=== PATIENT | male | born 1975 | race Caucasian/White ===

== ENCOUNTER 2022-03-06 22:31 | Emergency (ER) | payer MEDICARE, OTHER ==
[~2022-03-06] VITALS: Ht 180.3 cm; Wt 143.8 kg
[2022-03-06] MEDS ORDERED: methylPREDNISolone 80 MG/ML (DEPO MEDROL) VIAL IM STA (22:46)
[2022-03-06] MEDS ORDERED: ACETAMINOPHEN 500 MG TAB (TYLENOL) PO STA (22:46)
--- NOTE | 2022-03-06 22:50 | ED General ---
General Chief Complaint: Cough/Cold/Flu Symptoms Stated Complaint: FEVER,CONGESTION Source of Information: Patient History of Present Illness Date Seen by Provider: Mar 06, 2022 Time Seen by Provider: 22:39 Initial Comments 46-year-old male presenting with complaints of fever, cough, congestion since Monday night March 04. Denies any known ill contacts. He has had trouble keeping his fever down. He has only been taking ibuprofen 400 mg every 4-6 hours. He was not bringing anything up when he coughs. He had a sore throat and headache as well. Timing/Duration: 1-2 Days Severity: Severe Associated Systoms: Cough; No Diaphoresis; Fever/Chills, Headaches; No Loss of Appetite; Malaise; No Nausea/Vomiting, No Rash, No Seizure; Shortness of Air; No Syncope, No Weakness Allergies and Home Medications Allergies Coded Allergies: Penicillins (Verified Allergy, Unknown, 03/06/22) clarithromycin (Verified Allergy, Unknown, 03/06/22) Patient Home Medication List Home Medication List Reviewed: Yes Oseltamivir Phosphate (Oseltamivir Phosphate) 75 Mg Capsule, 75 MG PO BID Prescribed by: DELROY YE on 03/06/22 4478 Review of Systems Review of Systems Constitutional: chills, fever EENTM: nose congestion, throat pain Respiratory: cough, dyspnea on exertion, short of breath, wheezing Cardiovascular: chest pain (Chest wall pain from coughing) Gastrointestinal: No nausea, No vomiting Genitourinary: No dysuria Musculoskeletal: see HPI (Generalized body aches with fever) Skin: No rash Psychiatric/Neurological: Headache Hematologic/Lymphatic: Denies Blood Clots Past Cqpxqsk-Mhecyt-Vhshzm Hx Patient Social History Tobacco Use?: No Use of E-Cig and/or Vaping dev: No Substance use?: No Alcohol Use?: No Physical Exam Vital Signs Vital Signs - First Documented Capillary Refill : Height, Weight, BMI Height: '" Weight: lbs. oz. kg; BMI Method: General Appearance: No Apparent Distress, Obese HEENT: PERRL/EOMI, Moist Mucous Membranes, Pharyngeal Erythema; No Photophobia, No Tonsillar Exudate, No Tonsillar Enlargement Neck: Full Range of Motion, Normal Inspection, Non Tender, Supple Respiratory: No Chest Non Tender (Tender to palpation over chest wall); Lungs C lear, Normal Breath Sounds, No Accessory Muscle Use, No Respiratory Distress Cardiovascular: Normal Peripheral Pulses, Tachycardia Extremity: Normal Capillary Refill, Normal Inspection, No Pedal Edema Neurologic/Psychiatric: Alert, Oriented x3, wiping rag washer II-XII Norm as Tested Skin: Normal Color, Warm/Dry Progress/Results/Core Measures Suspected Sepsis SIRS Temperature: Pulse: Respiratory Rate: Blood Pressure / Mean: Results/Orders Lab Results Laboratory Tests Test 03/06/22 22:50 Range/Units Influenza Type A (RT-PCR) Detected H Not Detecte Influenza Type B (RT-PCR) Not Detected Not Detecte SARS-CoV-2 RNA (RT-PCR) Not Detected Not Detecte My Orders Orders - DELROY YE MD Chest Pa/Lat (2 View) (03/06/22 22:44) Covid 19 Inhouse Test (03/06/22 22:44) Influenza A And B By Pcr (03/06/22 22:44) Isolation Central Supply Req (03/06/22 22:44) Dexamethasone Injection (Decadron Inje (03/06/22 22:46) Methylprednisolone Acetate Inj (Depo-Med (03/06/22 22:46) Acetaminophen Tablet (Tylenol Tablet) (03/06/22 22:46) Oseltamivir 75 Mg Capsule (Tamiflu 75 (03/06/22 23:33) Vital Signs/I&O 03/06/22 03/06/22 03/06/22 22:37 22:37 23:40 Temp 38.2 36.7 Pulse 98 98 Resp 16 16 B/P (MAP) 140/89 (106) 140/89 Pulse Ox 96 96 O2 Delivery Room Air Room Air Room Air Capillary Refill : Progress Note #1: Progress Note Swab to check for influenza and COVID. Chest x-ray to look for pneumonia. Decadron and Depo-Medrol for helping to loosen up his cough and congestion. Acetaminophen to help with his fever Progress Note #2: Progress Note Influenza A is positive. Other tests were negative. No acute infiltrate or effusion on my review and personal interpretation of his two-view chest x-ray. Counseled on influenza a and treatment with Tamiflu. Encourage fluids and hydration. Counseled on fever control. Diagnostic Imaging Diagonstic Imaging: Xray Plain Films/CT/US/NM/MRI: chest Comments On my review and personal interpretation of the two-view chest x-ray patient has no acute infiltrate or effusion. Reviewed: Reviewed by Me Departure Impression Primary Impression: Influenza A Additional Impression: Acute viral syndrome Disposition: 01 HOME, SELF-CARE Condition: Stable Departure-Patient Inst. Decision time for Depature: 23:19 Referrals: [facility] Patient Instructions: Flu, Adult ED, Viral Syndrome (DC), Fever, Adult (DC) Add. Discharge Instructions: Take the Tamiflu to help shorten the course of the Influenza infection. Wear a mask and quarantine around others while you have fever. Alternate Acetaminophen 650 mg every 4 hours with Ibuprofen 600 mg (3 over the counter 200 mg pills) every 6 hours to help with fever and body aches. Drink more water and fluids to stay better hydrated. You could take Mucinex to help loosen cough and congestion but need to drink extra water to make it work effectively. All discharge instructions reviewed with patient and/or family. Voiced u nderstanding. Scripts Oseltamivir Phosphate (Oseltamivir Phosphate) 75 Mg Capsule 75 MG PO BID for Influenza A for 5 Days, #10 CAP 0 Refills Prov: DELROY YE MD 03/06/22 Work/School Note: Work Release Form Date Seen in the Emergency Department: Mar 06, 2022 Return to Work: Mar 09, 2022 Restrictions: Return-No Fever (24hrs) DELROY YE MD Mar 06, 2022 22:50
[2022-03-06] MEDS ORDERED: OSEL75CA15 PO (23:22)
[2022-03-06] MEDS ORDERED: OSELTAMIVIR 75 MG (TAMIFLU) CAPSULE PO STA (23:33)
[2022-03-06 23:40] VITALS: BP 140/89
--- NOTE | 2022-03-07 08:11 | Diagnostic Imaging Report ---
EXAMINATION: CHEST (PA AND LATERAL) CLINICAL INDICATION: 46-year-old male, cough and fever. Shortness of breath. COMPARISON: None. FINDINGS: Heart size and mediastinal contours are unremarkable. There is no identified pneumothorax. There is no pleural effusion. There is no identified focal airspace consolidation. IMPRESSION: 1. No identified acute cardiopulmonary abnormality. Dictated by: Dictated on workstation # [id number]
== END 2022-03-06 23:41 | disposition home or self-care (01) ==
LOC: ER FS 22:34
DX: J10.1 Influenza due to other identified influenza virus with other respiratory manifestations (principal); B34.9 Viral infection, unspecified; E66.9 Obesity, unspecified; Z68.41 Body mass index [BMI] 40.0-44.9, adult; Z20.822 Contact with and (suspected) exposure to COVID-19; Z28.310 Unvaccinated for COVID-19
CPT/HCPCS: 71046; 87636

== ENCOUNTER 2022-08-01 09:22 | Emergency (ER) | payer MEDICARE ==
[~2022-08-01] VITALS: Ht 182 cm; Wt 145.0 kg
[~2022-08-01 09:22] MED LIST: OSEL75CA15 PO
[2022-08-01] MEDS ORDERED: NS IV 1000 ML 1,000 ML IV STA (09:37)
[2022-08-01] MEDS ORDERED: PANTOPRAZOLE 40 MG (PROTONIX) VIAL IV STA (09:37)
--- NOTE | 2022-08-01 09:44 | ED GI ---
General Chief Complaint: Abdominal/GI Problems Stated Complaint: ABD PAIN; BLOODY STOOL Source of Information: Patient, RN/MD (MARY Langford from [facility] called at 0917 to advise the patient was coming from seeing her. Had hemoglobin 14.5, Hemorrhoids on rectal exam and diffuse abdominal pain.) History of Present Illness Date Seen by Provider: Aug 01, 2022 Time Seen by Provider: 09:25 Initial Comments 46-year-old male presenting with complaints of 4 days of diffuse abdominal cramping pain with recurrent watery diarrhea and bloody stools. He has had some increased belching and states that it smells like rotten eggs. He has increased cramping pain and diarrhea with trying to eat or drink anything. He has some mild nausea but no vomiting. He has been taking Imodium [id number]-[id number] but it was not slowing down his diarrhea. He denies any new foods or recent travel or antibiotics. He also denies any ill contacts. He denies having symptoms like this previously. He has not had any endoscopy done to look at his colon or gut in the past. He does not know of any history for family of Crohn's or Ulcerative colitis. He denies any surgery on his abdomen previously. He reports a history of borderline Diabetes but was never put on any medicines. He has not established with a pcp here in [place] since moving here around 2021. He describes watery diarrhea with blood and states it happens about every hour. He last ate last night and he drank a bottle of water this am around 720 am. Whenever he eats or drinks anything his symptoms are worse. Timing/Duration: 3-4 Days Severity/Quality: Mild (4 out of 10), Cramping Location: Generalized Abdomen Activities at Onset: None Modifying Factors: Worsens With Defecating Associated Symptoms: No Back Pain, No Chest Pain, No Diaphoresis, No Fever/Chills; Fatigue; No Headache; Heartburn; No Rash, No Shortness of Air, No Swelling/Mass in Abdomen, No Syncope, No Weakness Allergies and Home Medications Allergies Coded Allergies: Levofloxacin (Verified Allergy, Severe, Hives, 08/01/22) Penicillins (Verified Allergy, Severe, Hives, 08/01/22) clarithromycin (Verified Allergy, Severe, Hives, 08/01/22) Patient Home Medication List Home Medication List Reviewed: Yes Dicyclomine HCl (Dicyclomine HCl) 10 Mg Capsule, 10 MG PO Q6H PRN for abdominal cramping Prescribed by: DELROY YE on 08/01/22 1118 Oseltamivir Phosphate (Oseltamivir Phosphate) 75 Mg Capsule, 75 MG PO BID Prescribed by: DELROY YE on 03/06/22 2322 Sulfamethoxazole/Trimethoprim (Bactrim Ds Tablet) 1 Each Tablet, 1 EACH PO BID Prescribed by: DELROY YE on 08/01/22 1118 Review of Systems Review of Systems Constitutional: No chills, No dizziness, No fever EENTM: No Symptoms Reported Respiratory: No Symptoms Reported Cardiovascular: No Symptoms Reported Gastrointestinal: See HPI Genitourinary: No Symptoms Reported Musculoskeletal: no symptoms reported Skin: no symptoms reported Psychiatric/Neurological: No Symptoms Reported Past Njpxncz-Zroqpw-Dgpewh Hx Patient Social History Tobacco Use?: No Use of E-Cig and/or Vaping dev: No Substance use?: No Immunizations Up To Date First/Initial COVID19 Vaccinat: n.a Second COVID19 Vaccination Pito: n.a Third COVID19 Vaccination Date: n.a Past Medical History Surgery/Hospitalization HX: Borderline Diabetes Surgeries: No Physical Exam Vital Signs Vital Signs - First Documented 08/01/22 09:26 Temp 36.9 Pulse 102 Resp 16 B/P (MAP) 137/78 (97) Pulse Ox 97 O2 Delivery Room Air Capillary Refill : Height/Weight/BMI Height: '" Weight: lbs. oz. kg; 44.00 BMI Method: General Appearance: WD/WN, no apparent distress, obese HEENT: PERRL/EOMI, pharynx normal Neck: non-tender, full range of motion, supple, normal inspection Respiratory: chest non-tender, lungs clear, normal breath sounds, no respiratory distress, no accessory muscle use Cardiovascular: normal peripheral pulses, regular rate, rhythm Gastrointestinal: normal bowel sounds, soft, no pulsatile mass; No distended, No guarding, No rebound; tenderness (diffuse tenderness to palpation but feels it is worse with palpation of upper abdomen) Rectal: deferred (He had JULIO with [facility] at Urgent care so did not repeat the rectal. She had reported he has hemorrhoids but no active bleeding on exam.) Extremities: normal range of motion, non-tender, normal capillary refill Neurologic/Psychiatric: dish carrier II-XII nml as tested, alert, oriented x 3 Skin: normal color, warm/dry Images 1 - diffuse abdominal cramping pain worse with palpation. Seems like upper abdomen worse than lower abdomen with palpation. Progress/Results/Core Measures Results/Orders Lab Results Laboratory Tests Test 08/01/22 09:35 08/01/22 09:37 Range/Units White Blood Count 8.8 4.3-11.0 10^3/uL Red Blood Count 4.79 4.30-5.52 10^6/uL Hemoglobin 14.8 13.3-17.7 g/dL Hematocrit 43 40-54 % Mean Corpuscular Volume 89 80-99 fL Mean Corpuscular Hemoglobin 31 25-34 pg Mean Corpuscular Hemoglobin Concent 35 32-36 g/dL Red Cell Distribution Width 12.9 10.0-14.5 % Platelet Count 178 130-400 10^3/uL Mean Platelet Volume 10.4 9.0-12.2 fL Immature Granulocyte % (Auto) 1 % Neutrophils (%) (Auto) 58 42-75 % Lymphocytes (%) (Auto) 32 12-44 % Monocytes (%) (Auto) 7 0-12 % Eosinophils (%) (Auto) 2 0-10 % Basophils (%) (Auto) 1 0-10 % Neutrophils # (Auto) 5.1 1.8-7.8 10^3/uL Lymphocytes # (Auto) 2.8 1.0-4.0 10^3/uL Monocytes # (Auto) 0.7 0.0-1.0 10^3/uL Eosinophils # (Auto) 0.2 0.0-0.3 10^3/uL Basophils # (Auto) 0.1 0.0-0.1 10^3/uL Immature Granulocyte # (Auto) 0.0 0.0-0.1 10^3/uL Sodium Level 136 135-145 MMOL/L Potassium Level 4.2 3.6-5.0 MMOL/L Chloride Level 101 98-107 MMOL/L Carbon Dioxide Level 23 21-32 MMOL/L Anion Gap 12 5-14 MMOL/L Blood Urea Nitrogen 13 7-18 MG/DL Creatinine 0.86 0.60-1.30 MG/DL Estimat Glomerular Filtration Rate 107 BUN/Creatinine Ratio 15 Glucose Level 122 H 70-105 MG/DL Calcium Level 9.3 8.5-10.1 MG/DL Corrected Calcium 9.1 8.5-10.1 MG/DL Total Bilirubin 0.3 0.1-1.0 MG/DL Aspartate Amino Transf (AST/SGOT) 39 H 5-34 U/L Alanine Aminotransferase (ALT/SGPT) 61 H 0-55 U/L Alkaline Phosphatase 72 40-136 U/L Total Protein 7.1 6.4-8.2 GM/DL Albumin 4.2 3.2-4.5 GM/DL Lipase 32 8-78 U/L Urine Color YELLOW Urine Clarity CLEAR Urine pH 5.5 5-9 Urine Specific [place] 1.025 H 1.016-1.022 Urine Protein NEGATIVE NEGATIVE Urine Glucose (UA) NEGATIVE NEGATIVE Urine Ketones NEGATIVE NEGATIVE Urine Nitrite NEGATIVE NEGATIVE Urine Bilirubin NEGATIVE NEGATIVE Urine Urobilinogen 0.2 < = 1.0 MG/DL Urine Leukocyte Esterase NEGATIVE NEGATIVE Urine RBC (Auto) NEGATIVE NEGATIVE Urine RBC NONE /HPF Urine WBC NONE /HPF Urine Squamous Epithelial Cells 5-10 /HPF Urine Crystals NONE /LPF Urine Bacteria NEGATIVE /HPF Urine Casts NONE /LPF Urine Mucus SMALL H /LPF Urine Culture Indicated NO Micro Results Microbiology 08/01/22 C. difficile GDH Antigen & Toxins - Final, Complete My Orders Orders - DELROY YE MD Comprehensive Metabolic Panel (08/01/22 09:37) Lipase (08/01/22 09:37) Ua Culture If Indicated (08/01/22 09:37) Ed Iv/Invasive Line Start (08/01/22 09:37) Cbc With Automated Diff (08/01/22 09:37) Ct Abdomen/Pelvis W (08/01/22 09:37) Ns Iv 1000 Ml (Sodium Chloride 0.9%) (08/01/22 09:37) Pantoprazole Injection (Protonix Injecti (08/01/22 09:37) Stool Culture (08/01/22 09:37) Fecal Wbc (08/01/22 09:37) C Difficile Ag + Toxin A/B. (08/01/22 09:37) Iohexol Injection (Omnipaque 350 Mg/Ml 1 (08/01/22 10:30) Received Contrast (Hold Metformin- Contr (08/01/22 10:30) Ns (Ivpb) (Sodium Chloride 0.9% Ivpb Bag (08/01/22 10:30) Iohexol Injection (Omnipaque 350 Mg/Ml 1 (08/01/22 10:30) Received Contrast (Hold Metformin- Contr (08/01/22 10:30) Ns (Ivpb) (Sodium Chloride 0.9% Ivpb Bag (08/01/22 10:30) Medications Given in ED Current Medications Medications Dose Ordered Sig/Christine Route Start Time Stop Time Status Last Admin Dose Admin Iohexol 100 ml ONCE ONCE IV 08/01/22 10:30 08/01/22 10:31 DC 08/01/22 10:27 100 ML Sodium Chloride 100 ml ONCE ONCE IV 08/01/22 10:30 08/01/22 10:31 DC 08/01/22 10:27 100 ML Vital Signs/I&O 08/01/22 08/01/22 09:26 11:37 Temp 36.9 36.9 Pulse 102 84 Resp 16 16 B/P (MAP) 137/78 (97) 126/72 Pulse Ox 97 98 O2 Delivery Room Air Room Air Progress Progress Note #1: Progress Note Potential diagnosis of gastroenteritis, diverticulitis, colitis, cholecystitis, pyelonephritis, Crohn's, ulcerative colitis, food poisoning. Obtain peripheral IV access and send labs for complete blood count, comprehensive metabolic profile, lipase, urinalysis, stool studies. CT scan of the abdomen and pelvis with IV contrast to help evaluate for pathology in his abdomen and pelvis causing his symptoms. Administer normal saline 1 L IV fluid bolus for hydration, pantoprazole 40 mg IV for gastritis/GERD. Patient denies needing any medicine for nausea and denies needing anything for pain right now. We will have him trying to provide a stool specimen for culture and testing as well as a urinalysis for testing. Progress Note #2: Time: 10:47 Progress Note Complete blood count showed normal white blood cell count at 8.8, he was not anemic with a hemoglobin of 14.8. He had normal platelets at 178. His comprehensive metabolic profile showed no acute significant abnormality on his electrolytes. His glucose was up to 122. His lipase was normal at 32. His ALT and AST were slightly elevated to 39 and 61. I reviewed the radiologist report at 10:47 AM and it showed no acute significant abnormality. He had just provided a urine specimen and a stool specimen. The stool specimen was primarily blood and clots and only a small amount. Progress Note #3: Progress Note Urinalysis did not show signs of infection or dehydration. Stool studies pending at time of discharge. As patient reports an allergy to penicillins, clarithromycin, Levaquin, and states all 3 of the medicines cause hives rash and trouble breathing he would not be a candidate for azithromycin or fluoroquinolone to treat for the bloody stools in case there is a bacterial component. He reports that he is not allergic to sulfa drugs so we will try using Bactrim DS 1 p.o. twice daily for his bloody stools in case there is a bacterial component. Cultures pending as well as a C. difficile toxin. Counseled on follow-up and return precautions. Also given information about Dr. Mays the on-call general surgeon for follow-up for possible endoscopy. Diagnostic Imaging Diagonstic Imaging: CT Plain Films/CT/US/NM/MRI: abdomen, pelvis Comments NAME: [facility] REC#: [id number] PT STATUS: REG ER : 1975 PHYSICIAN: DELROY YE MD ADMIT DATE: 08/01/22/ER FS Draft Date of Exam:08/01/22 CT ABDOMEN/PELVIS W EXAMINATION: CT abdomen and pelvis with intravenous contrast. TECHNIQUE: Multiple contiguous axial images were obtained through the abdomen and pelvis after the uneventful administration of intravenous contrast. All CT scans use one or more of the following dose optimizing techniques: automated exposure control, MA and/or KvP adjustment based on patient size and exam type or iterative reconstruction. HISTORY: diffuse abd pain, bloody diarrhea x 4 days COMPARISON: None available. FINDINGS: Lung bases: The lung bases are clear. Solid organs: The liver is normal without focal lesion. The gallbladder is normal. There is no biliary ductal dilation. Pancreas is normal. Spleen is normal. Adrenal glands are normal. The kidneys are normal without hydronephrosis. Bowel: The stomach and small bowel are normal without obstruction. The colon is normal. There are no secondary signs of acute appendicitis. Peritoneum: There is no intraperitoneal free fluid or free air. No suspicious lymphadenopathy. Vasculature: Normal without aneurysm. Musculoskeletal: Degenerative changes of the spine without suspicious osseous lesion or compression fracture. Pelvis: The prostate gland is normal. The urinary bladder is normal. IMPRESSION: 1. No acute abnormality in the abdomen or pelvis. Dictated on workstation # [id number] Dict: 08/01/22 1035 Trans: 08/01/22 1038 [id number] Interpreted by: RIANNA SIMMONS DO Electronically signed by: Reviewed: Reviewed by Me Departure Impression Primary Impression: Bloody diarrhea Additional Impression: Abdominal cramping, generalized Disposition: 01 HOME, SELF-CARE Condition: Stable Departure-Patient Inst. Decision time for Depature: 11:16 Referrals: FELICIA MAYS,LOCAL PHYSICIAN (PCP) Primary Care Physician [facility] Patient Instructions: Bloody Stools, Adult ED, Abdominal Pain, Adult ED Add. Discharge Instructions: Stay well-hydrated and continue to drink plenty of fluids. Use the antibiotic and medicine for cramping to help with your bloody diarrhea. If the culture and studies of your stool come back showing that you need a different medicine or antibiotic you will get a call. If your symptoms persist or you are having more problems you could call Dr. Mays, general surgeon, in [place] about having a colonoscopy set up and further evaluation. Check with [facility] about establishing a primary care provider. All discharge instructions reviewed with patient and/or family. Voiced understanding. Scripts Dicyclomine HCl (Dicyclomine HCl) 10 Mg Capsule 10 MG PO Q6H PRN for abdominal cramping for 7 Days, #28 CAP 0 Refills Prov: DELROY YE MD 08/01/22 Sulfamethoxazole/Trimethoprim (Bactrim Ds Tablet) 1 Each Tablet 1 EACH PO BID for BLoody Diarrhea for 7 Days, #14 TAB 0 Refills Prov: DELROY YE MD 08/01/22 DELROY YE MD Aug 01, 2022 09:44
[2022-08-01 09:54] LABS: BASOPHILS # (AUTO) 0.1 10^3/uL (0.0-0.1); BASOPHILS % (AUTO) 1 % (0-10); EOSINOPHILS # (AUTO) 0.2 10^3/uL (0.0-0.3); EOSINOPHILS % (AUTO) 2 % (0-10); HEMATOCRIT 43 % (40-54); HEMOGLOBIN 14.8 g/dL (13.3-17.7); LYMPHOCYTES # (AUTO) 2.8 10^3/uL (1.0-4.0); LYMPHOCYTES % (AUTO) 32 % (12-44); MEAN CORPUSCULAR HEMOGLOBIN 31 pg (25-34); MEAN CORPUSCULAR HGB CONC 35 g/dL (32-36); MEAN CORPUSCULAR VOLUME 89 fL (80-99); MEAN PLATELET VOLUME 10.4 fL (9.0-12.2); MONOCYTES # (AUTO) 0.7 10^3/uL (0.0-1.0); MONOCYTES % (AUTO) 7 % (0-12); NEUTROPHILS # (AUTO) 5.1 10^3/uL (1.8-7.8); NEUTROPHILS % (AUTO) 58 % (42-75); PLATELET COUNT 178 10^3/uL (130-400); WHITE BLOOD COUNT 8.8 10^3/uL (4.3-11.0)
[2022-08-01 10:07] LABS: BILIRUBIN,TOTAL 0.3 MG/DL (0.1-1.0); CALCIUM 9.3 MG/DL (8.5-10.1); CREATININE SERUM 0.86 MG/DL (0.60-1.30); POTASSIUM 4.2 MMOL/L (3.6-5.0)
[2022-08-01 10:08] LABS: ALBUMIN 4.2 GM/DL (3.2-4.5); TOTAL PROTEIN 7.1 GM/DL (6.4-8.2)
[2022-08-01] MEDS ORDERED: HOLD METFORMIN - RECEIVED CONTRAST 20 ML VIAL IV SCH ×2 (10:30)
[2022-08-01] MEDS ORDERED: NS 100 ML (IVPB) BAG IV ONE ×2 (10:30)
[2022-08-01] MEDS ORDERED: IOHEXOL 350 MG/ML 100 ML (OMNIPAQUE 350) VIAL IV ONE ×2 (10:30)
--- NOTE | 2022-08-01 10:39 | Diagnostic Imaging Report ---
EXAMINATION: CT abdomen and pelvis with intravenous contrast. TECHNIQUE: Multiple contiguous axial images were obtained through the abdomen and pelvis after the uneventful administration of intravenous contrast. All CT scans use one or more of the following dose optimizing techniques: automated exposure control, MA and/or KvP adjustment based on patient size and exam type or iterative reconstruction. HISTORY: diffuse abd pain, bloody diarrhea x 4 days COMPARISON: None available. FINDINGS: Lung bases: The lung bases are clear. Solid organs: The liver is normal without focal lesion. The gallbladder is normal. There is no biliary ductal dilation. Pancreas is normal. Spleen is normal. Adrenal glands are normal. The kidneys are normal without hydronephrosis. Bowel: The stomach and small bowel are normal without obstruction. The colon is normal. There are no secondary signs of acute appendicitis. Peritoneum: There is no intraperitoneal free fluid or free air. No suspicious lymphadenopathy. Vasculature: Normal without aneurysm. Musculoskeletal: Degenerative changes of the spine without suspicious osseous lesion or compression fracture. Pelvis: The prostate gland is normal. The urinary bladder is normal. IMPRESSION: 1. No acute abnormality in the abdomen or pelvis. Dictated by: Dictated on workstation # [id number]
[2022-08-01 10:54] LABS: BILIRUBIN,URINE NEGATIVE (NEGATIVE); CLARITY,URINE CLEAR; COLOR,URINE YELLOW; GLUCOSE, URINE (UA) NEGATIVE (NEGATIVE); KETONES,URINE NEGATIVE (NEGATIVE); LEUKOCYTE ESTERASE ,URINE NEGATIVE (NEGATIVE); NITRITE,URINE NEGATIVE (NEGATIVE); PH,URINE 5.5 (5-9); PROTEIN,URINE NEGATIVE (NEGATIVE)
[2022-08-01 10:59] LABS: BACTERIA,URINE NEGATIVE /HPF
[2022-08-01] MEDS ORDERED: SULF1TAB38 PO (11:18)
[2022-08-01] MEDS ORDERED: DICY10CA12 PO (11:18)
[2022-08-01 11:37] VITALS: BP 126/72
== END 2022-08-01 11:38 | disposition home or self-care (01) ==
LOC: EDUNIT# 09:22 → ER FS 09:23
DX: K92.1 Melena (principal); K64.9 Unspecified hemorrhoids; R10.84 Generalized abdominal pain; E66.9 Obesity, unspecified; Z88.1 Allergy status to other antibiotic agents; Z68.41 Body mass index [BMI] 40.0-44.9, adult; Z28.310 Unvaccinated for COVID-19
CPT/HCPCS: 36415; 74177; 80053; 81000; 83690; 85025; 87015; 87045; 87046; 87324; 87449; 87899; Q9967

== ENCOUNTER 2022-09-07 05:52 | Outpatient (CLI) | payer MEDICARE ==
[~2022-09-07] VITALS: Ht 182.9 cm; Wt 144.7 kg
[~2022-09-07 05:52] MED LIST changes: +DICY10CA12 PO; +SULF1TAB38 PO
[2022-09-12] MEDS ORDERED: TADA5TAB13 PO (17:30)
[2022-09-12] MEDS ORDERED: FLUO40CA12 PO (17:30)
[2022-09-12] MEDS ORDERED: DIAZ5TAB49 PO (17:30)
== END 2022-09-12 17:39 | disposition home or self-care (01) ==
LOC: PREOP 05:52
PROVIDERS: ATTEND Surgery
DX: Z01.818 Encounter for other preprocedural examination (principal)

== ENCOUNTER 2022-09-19 07:33 | Day surgery (SDC) | payer MEDICARE ==
[~2022-09-19] VITALS: Ht 182.9 cm; Wt 144.7 kg
[~2022-09-19 07:33] MED LIST changes: +DIAZ5TAB49 PO; +FLUO40CA12 PO; +TADA5TAB13 PO
[2022-09-19] MEDS ORDERED: LACTATED RINGERS 1,000 ML IV STA (07:36)
[2022-09-19 07:50] VITALS: BP 138/79
--- NOTE | 2022-09-19 08:58 | Progress Note-Pre Operative ---
Pre-Operative Progress Note Date of Available H&P: August 25, 2022 Date H&P Reviewed: Sep 19, 2022 Time H&P Reviewed: 08:54 History & Physical: H&P Reviewed, Patient Examed, No changes noted Pre-Operative Diagnosis: Rectal bleed, bowel changes FELICIA MAYS DO Sep 19, 2022 08:58
[2022-09-19] MEDS ORDERED: PROPOFOL INJECTION 50 ML IV ONE (09:16)
--- NOTE | 2022-09-19 09:17 | Anesthesia-General Post-Op ---
MAC Patient Condition Mental Status/LOC: Same as Preop Cardiovascular: Satisfactory Nausea/Vomiting: Absent Respiratory: Satisfactory Pain: Controlled Complications: Absent Post Op Complications Complications None Follow Up Care/Instructions Patient Instructions None needed. Anesthesiology Discharge Order Discharge Order Patient is doing well, no complaints, stable vital signs, no apparent adverse anesthesia problems. No complications reported per nursing. SHERRY OLVERA CRNA Sep 19, 2022 09:17
--- NOTE | 2022-09-19 09:19 | Progress Note-Post Operative ---
Post-Operative Progess Note Surgeon (s)/Customer Engagement Representative (s) Surgeon FELICIA MAYS DO Customer Engagement Representative: JESS Lora student Pre-Operative Diagnosis Rectal bleed, bowel changes Post-Operative Diagnosis Polyp Diverticula Int hemorrhoids Procedure & Operative Findings Date of Procedure 09/19/22 Procedure Performed/Findings Colonoscopy with hot biopsy PROCEDURE NOTE: After informed consent was obtained, the patient was brought to the endoscopy suite, placed in bed in left lateral decubitus position. He was administered IV sedation by the MARITIME PILOT who then monitored his vitals the entire time, heart rate, blood pressure and pulse ox and the scope was inserted, pushed all the way to about 130 cm and pushed into the cecum, took a picture of appendiceal orifice and noted the ileocecal valve. On the way in in the Transverse colon found a polyp and did a hot biopsy of it. Once in the Cecum, slowly withdrew the scope insufflating to look circumferentially at the bansal starting in the cecum, up the ascending colon to the hepatic flexure, then down the transverse colon, splenic flexure, into the descending colon down in the sigmoid and then into the rectal vault and retroflexed the scope. Took a picture of the internal hemorrhoids. On the right side of colon saw a single diverticula and took a picture of it. The patient tolerated the procedure. He was recovered in endoscopy suite. Recommended for repeat colonoscopy in 5 years. Anesthesia Type IV sedation by [facility] PILOT Estimated Blood Loss Estimated blood loss (mL): scant Specimens/Packing Specimens Removed Transverse colon polyp FELICIA MAYS DO Sep 19, 2022 09:19
--- NOTE | 2022-09-19 09:20 | Endoscopy Discharge Instruct ---
Endo Procedure/Findings Findings 1.: Polyp 2.: Diverticulosis 3.: Internal Hemorrhoids Discharge Instructions - Activity: You might feel a little sleepy until tomorrow. This is due to the medicine you received to relax you. Until tomorrow, you should: NOT drive a car, operate machinery or power tools. NOT drink any alcoholic beverages. NOT make any important decisions or sign importortant papers. Do not return to work until tomorrow, unless otherwise instructed. Resume previous activities tomorrow. Diet: Start by taking liquids. If you tolerate liquids, advance to solid food. 1.: Colonscopy in 5 years Notify Physician - If you experience excessive bleeding, unusual abdominal pain, fever, or chest pain, contact your doctor immediately. Follow-Up: Other Follow up in my office in one week FELICIA MAYS DO Sep 19, 2022 09:20
[2022-09-19 09:23] VITALS: BP 109/70
== END 2022-09-19 09:47 | disposition home or self-care (01) ==
LOC: ENDO 07:33
PROVIDERS: ATTEND Surgery
DX: D12.3 Benign neoplasm of transverse colon (principal); K57.31 Diverticulosis of large intestine without perforation or abscess with bleeding; K64.8 Other hemorrhoids; Z68.41 Body mass index [BMI] 40.0-44.9, adult; E66.01 Morbid (severe) obesity due to excess calories; G47.33 Obstructive sleep apnea (adult) (pediatric); Z87.891 Personal history of nicotine dependence

== ENCOUNTER 2022-12-05 | Emergency (ER) | payer MEDICARE ==
[~2022-12-05] VITALS: Ht 182.8 cm; Wt 143.8 kg
[2022-12-05 00:03] VITALS: BP 125/64
[2022-12-05] MEDS ORDERED: ONDANSETRON INJECTION 4 MG/2 ML (SDV) IVP ONE (00:15)
[2022-12-05] MEDS ORDERED: NS IV 1000 ML 1,000 ML IV STA (00:15)
--- NOTE | 2022-12-05 00:20 | ED GI ---
General Chief Complaint: Abdominal/GI Problems Stated Complaint: VOMITING|ABD AND BACK PAIN| IN LIVER STUDY Source of Information: Patient Exam Limitations: No Limitations History of Present Illness Date Seen by Provider: Dec 05, 2022 Time Seen by Provider: 00:03 Initial Comments 47-year-old male with past medical history of fatty liver disease coming in due to nonbloody nonbilious vomiting that started around 7 PM last night. He is on Ozempic. A clinical trial at [facility]. He had to go down on the dosing because it caused diarrhea every week when he gave it to himself. They increase the dose again today, and he started vomiting shortly after. He has never really had vomiting with it in the past. Denies any fever, severe abdominal pain, focal weakness, numbness, diarrhea, dysuria, hematuria, flank pain, or any other concerns. Allergies and Home Medications Allergies Coded Allergies: Penicillins (Verified Allergy, Severe, Hives, 08/01/22) clarithromycin (Verified Allergy, Severe, Hives, 08/01/22) levofloxacin (Verified Allergy, Severe, Hives, 08/01/22) Patient Home Medication List Home Medication List Reviewed: Yes Diazepam (Diazepam) 5 Mg Tablet, 5 MG PO PRN, (Reported) Entered as Reported by: DEONTE LONGORIA on 09/12/221729 Fluoxetine HCl (Prozac) 40 Mg Capsule, 40 MG PO DAILY, (Reported) Entered as Reported by: DEONTE LONGORIA on 09/12/221729 Tadalafil (Tadalafil) 5 Mg Tablet, 5 MG PO DAILY, (Reported) Entered as Reported by: DEONTE LONGORIA on 09/12/221729 Review of Systems Review of Systems Constitutional: No fever EENTM: No Symptoms Reported Respiratory: No Symptoms Reported Cardiovascular: No Symptoms Reported Gastrointestinal: See HPI Genitourinary: No Symptoms Reported Musculoskeletal: no symptoms reported Skin: no symptoms reported Psychiatric/Neurological: No Symptoms Reported Endocrine: No Symptoms Reported Hematologic/Lymphatic: No Symptoms Reported Past Zkacodc-Ywgcer-Mqgplz Hx Patient Social History Substance use?: No Immunizations Up To Date First/Initial COVID19 Vaccinat: n.a Second COVID19 Vaccination Pito: n.a Third COVID19 Vaccination Date: n.a Seasonal Allergies Seasonal Allergies: Yes Past Medical History Surgery/Hospitalization HX: Borderline Diabetes Surgeries: Yes (ENDOLYMPATIC-SUBARACHNOID SHUNT) Ear Surgery Respiratory: Yes Sleep Apnea Currently Using CPAP: Yes Cardiac: Yes High Cholesterol Neurological: No Genitourinary: Yes Kidney Stones Gastrointestinal: Yes Chronic Diarrhea Musculoskeletal: No Endocrine: No ("QUESTIONABLE") HEENT: Yes (MENIERE'S DISEASE) Cancer: No Psychosocial: Yes (PANIC ATTACKS) Anxiety Integumentary: No Blood Disorders: No Physical Exam Vital Signs Vital Signs - First Documented 12/05/22 00:03 Temp 37.0 Pulse 70 Resp 16 B/P (MAP) 125/64 (84) Pulse Ox 97 O2 Delivery Room Air Capillary Refill : Height/Weight/BMI Height: '" Weight: lbs. oz. kg; 43.25 BMI Method: General Appearance: WD/WN, no apparent distress HEENT: PERRL/EOMI, normal ENT inspection, pharynx normal Neck: non-tender, full range of motion, supple, normal inspection Respiratory: chest non-tender, lungs clear, normal breath sounds, no resp iratory distress, no accessory muscle use Cardiovascular: regular rate, rhythm, no edema, no murmur Gastrointestinal: normal bowel sounds, non tender, soft; No distended, No guarding, No rebound Extremities: normal range of motion, non-tender, normal inspection, no pedal edema, no calf tenderness, normal capillary refill Back: normal inspection, no CVA tenderness Neurologic/Psychiatric: no motor/sensory deficits, alert, normal mood/affect Skin: normal color, warm/dry Progress/Results/Core Measures Results/Orders Lab Results Laboratory Tests Test 12/05/22 00:20 Range/Units White Blood Count 10.2 4.3-11.0 10^3/uL Red Blood Count 4.94 4.30-5.52 10^6/uL Hemoglobin 15.2 13.3-17.7 g/dL Hematocrit 45 40-54 % Mean Corpuscular Volume 90 80-99 fL Mean Corpuscular Hemoglobin 31 25-34 pg Mean Corpuscular Hemoglobin Concent 34 32-36 g/dL Red Cell Distribution Width 12.5 10.0-14.5 % Platelet Count 169 130-400 10^3/uL Mean Platelet Volume 10.8 9.0-12.2 fL Immature Granulocyte % (Auto) 0 % Neutrophils (%) (Auto) 75 42-75 % Lymphocytes (%) (Auto) 20 12-44 % Monocytes (%) (Auto) 4 0-12 % Eosinophils (%) (Auto) 0 0-10 % Basophils (%) (Auto) 0 0-10 % Neutrophils # (Auto) 7.6 1.8-7.8 10^3/uL Lymphocytes # (Auto) 2.0 1.0-4.0 10^3/uL Monocytes # (Auto) 0.4 0.0-1.0 10^3/uL Eosinophils # (Auto) 0.0 0.0-0.3 10^3/uL Basophils # (Auto) 0.0 0.0-0.1 10^3/uL Immature Granulocyte # (Auto) 0.0 0.0-0.1 10^3/uL Prothrombin Time 13.3 12.2-14.7 SEC INR Comment 1.0 0.8-1.4 Sodium Level 136 135-145 MMOL/L Potassium Level 4.1 3.6-5.0 MMOL/L Chloride Level 99 98-107 MMOL/L Carbon Dioxide Level 22 21-32 MMOL/L Anion Gap 15 H 5-14 MMOL/L Blood Urea Nitrogen 11 7-18 MG/DL Creatinine 0.76 0.60-1.30 MG/DL Estimat Glomerular Filtration Rate 110 BUN/Creatinine Ratio 14 Glucose Level 163 H 70-105 MG/DL Calcium Level 9.6 8.5-10.1 MG/DL Corrected Calcium 9.4 8.5-10.1 MG/DL Total Bilirubin 0.6 0.1-1.0 MG/DL Aspartate Amino Transf (AST/SGOT) 46 H 5-34 U/L Alanine Aminotransferase (ALT/SGPT) 54 0-55 U/L Alkaline Phosphatase 85 40-136 U/L Total Protein 7.3 6.4-8.2 GM/DL Albumin 4.3 3.2-4.5 GM/DL Lipase 37 8-78 U/L My Orders Orders - BLANCA WALL MD Cbc With Automated Diff (12/05/22 00:15) Comprehensive Metabolic Panel (12/05/22 00:15) Lipase (12/05/22 00:15) Protime With Inr (12/05/22 00:15) Ed Iv/Invasive Line Start (12/05/22 00:15) Ns Iv 1000 Ml (Ns Iv 1000 Ml) (12/05/22 00:15) Ondansetron Injection (Ondansetron Inj (12/05/22 00:15) Medications Given in ED Current Medications Medications Dose Ordered Sig/Christine Route Start Time Stop Time Status Last Admin Dose Admin Ondansetron HCl 4 mg ONCE ONCE IVP 12/05/22 00:15 12/05/22 00:17 DC 12/05/22 00:27 4 MG Vital Signs/I&O 12/05/22 00:03 Temp 37.0 Pulse 70 Resp 16 B/P (MAP) 125/64 (84) Pulse Ox 97 O2 Delivery Room Air Progress Progress Note : Progress Note 47-year-old male with above history coming in due to nonbloody nonbilious vomiting in the setting of going up on his dose on the Ozempic. ABCs were intact and vitals were stable on presentation. Physical exam with a soft and nontender abdomen. An IV was placed and basic labs were obtained including LFTs and lipase. Differential certainly includes pancreatitis as an adverse reaction of the medication versus vomiting from it versus regular GI illness. He was given Zofran as well as IV fluids. Labs were significant for a normal white blood cell count, normal kidney function, normal creatinine, slightly elevated AST which is similar to prior, normal INR. On reassessment, patient is well-appearing and has not had any vomiting ER. Repeat abdominal exam once again reassuring. Likely this is a medication side effect. I did offer to do COVID and flu viral testing, patient does not want that at this time. I believe he is stable for discharge with outpatient follow. He was sent home with strict return precautions Departure Impression Primary Impression: Vomiting in adult Additional Impression: Medication adverse effect Qualified Codes: T50.905A - Adverse effect of unspecified drugs, medicaments and biological substances, initial encounter Disposition: HOME, SELF-CARE Condition: Stable Departure-Patient Inst. Decision time for Depature: 01:15 Referrals: NO,LOCAL PHYSICIAN (PCP) Primary Care Physician JAYLENE GARCIA APRN (Family) Primary Care Physician Patient Instructions: Nausea and Vomiting, Adult ED Add. Discharge Instructions: This unfortunately is a very common side effect of the medication you are on, particularly when the doses increased. This does tend to get better with time. Nausea medicines were sent to your pharmacy. Try to take frequent but small sips of fluids tomorrow. Scripts Promethazine HCl (Promethazine Tablet) 25 Mg Tablet 25 MG PO Q6H PRN for NAUSEA/VOMITING-2ND LINE for 4 Days, #16 TAB Prov: BLANCA WALL MD 12/05/22 Ondansetron (Ondansetron Odt) 4 Mg Tab.rapdis 4 MG SL Q6H PRN for NAUSEA/VOMITING-1ST LINE for 5 Days, #20 TAB Prov: BLANCA WALL MD 12/05/22 Work/School Note: Work Release Form Date Seen in the Emergency Department: Dec 05, 2022 Return to Work: Dec 06, 2022 Restrictions: Return-No Vomiting(24hrs) BLANCA WALL MD Dec 05, 2022 00:20
[2022-12-05 00:28] LABS: BASOPHILS % (AUTO) 0 % (0-10); EOSINOPHILS % (AUTO) 0 % (0-10); HEMATOCRIT 45 % (40-54); HEMOGLOBIN 15.2 g/dL (13.3-17.7); LYMPHOCYTES % (AUTO) 20 % (12-44); MEAN CORPUSCULAR HEMOGLOBIN 31 pg (25-34); MEAN CORPUSCULAR HGB CONC 34 g/dL (32-36); MEAN CORPUSCULAR VOLUME 90 fL (80-99); MEAN PLATELET VOLUME 10.8 fL (9.0-12.2); MONOCYTES # (AUTO) 0.4 10^3/uL (0.0-1.0); MONOCYTES % (AUTO) 4 % (0-12); NEUTROPHILS # (AUTO) 7.6 10^3/uL (1.8-7.8); NEUTROPHILS % (AUTO) 75 % (42-75); PLATELET COUNT 169 10^3/uL (130-400); WHITE BLOOD COUNT 10.2 10^3/uL (4.3-11.0)
[2022-12-05 00:45] LABS: PROTHROMBIN TIME PATIENT 13.3 SEC (12.2-14.7)
[2022-12-05 00:56] LABS: CALCIUM 9.6 MG/DL (8.5-10.1); CREATININE SERUM 0.76 MG/DL (0.60-1.30); POTASSIUM 4.1 MMOL/L (3.6-5.0)
[2022-12-05 00:57] LABS: ALBUMIN 4.3 GM/DL (3.2-4.5); BILIRUBIN,TOTAL 0.6 MG/DL (0.1-1.0); TOTAL PROTEIN 7.3 GM/DL (6.4-8.2)
[2022-12-05] MEDS ORDERED: PROM25TA14 PO (01:07)
[2022-12-05] MEDS ORDERED: ONDA4TAB11 SL (01:07)
== END 2022-12-05 01:08 | disposition home or self-care (01) ==
LOC: EDUNIT# → ER FS 00:02
DX: T50.905A Adverse effect of unspecified drugs, medicaments and biological substances, initial encounter (principal)
CPT/HCPCS: 36415; 80053; 83690; 85025; 85610